=== PATIENT | male | born 1985 | race Caucasian/White ===

== ENCOUNTER 2018-03-07 08:52 | Emergency (ER) | payer OTHER ==
[~2018-03-07] VITALS: Ht 172.7 cm; Wt 77.1 kg
[~2018-03-07 08:52] MED LIST: CLEOCIN HCL150 MG PO; FLEXERIL PO; IBUPROFEN 800800 MG PO; MOBIC7.5 MG PO; NAPROSYN500 MG PO; NOHOMEMEDICATIONS; NORCO 5-325 TA1 EACH PO; NORFLEX100 MG PO; PENICILLIN VK250 MG PO; PENICILLIN VK500 MG PO
[2018-03-07 09:22] LABS: ABSOLUTE BASOPHILS 0.1 thou/uL (0.0-0.2); ABSOLUTE EOSINOPHILS 0.1 thou/uL (0.0-0.7); ABSOLUTE LYMPHOCYTES 1.7 thou/uL (0.8-5.3); ABSOLUTE NEUTROPHILS 11.6 thou/uL (1.6-8.1); BASOPHILS 0.4 %; EOSINOPHILS 0.9 %; HEMATOCRIT 49.6 % (42.0-52.0); HEMOGLOBIN 16.7 gm/dL (14.0-18.0); LYMPHOCYTES 11.6 %; MCHC 33.7 g/dL (28.0-37.0); MCV 89.2 fL (80.0-100.0); MONOCYTES 6.7 %; NUCLEATED RBCS 0 /100WBC; PLATELET COUNT* 308 thou/uL (150-400); POLYS 80.4 %; RBC 5.56 mil/uL (4.50-6.00); RDW-CV 15.4 % (10.5-14.5); WBC 14.4 thou/uL (4.0-11.0)
[2018-03-07 09:31] LABS: APTT 28.8 Seconds (25.0-31.3); PROTIME 10.5 Seconds (9.20-11.50)
[2018-03-07 09:34] LABS: ANION GAP 10 mmol/L (7-16); BUN 9 mg/dL (7-18); CALCIUM 9.2 mg/dL (8.5-10.1); CHLORIDE 101 mmol/L (98-107); CO2 29 mmol/L (21-32); CREATININE 1.1 mg/dL (0.6-1.3); GLUCOSE 83 mg/dL (70-99); SODIUM 140 mmol/L (136-145)
[2018-03-07 09:39] LABS: ACETAMINOPHEN < 2 ug/mL (10-30); ALCOHOL < 10 mg/dL (<10); SALICYLATE < 2.8 mg/dL (2.8-20.0)
[2018-03-07 09:53] LABS: ALBUMIN 4.2 g/dL (3.4-5.0); ALKALINE PHOSPHATASE 93 U/L (46-116); CK-MB MASS 0.9 ng/mL (<0.5-3.6); NT-PRO BRAIN NAT PEPTIDE 21 pg/mL (<300); SGOT 18 U/L (15-37); SGPT 22 U/L (30-65); TOTAL PROTEIN 8.1 g/dL (6.4-8.2); TROPONIN-I LEVEL <0.06 ng/mL (<0.06)
[2018-03-07 10:26] LABS: URINE BLOOD TRACE (Negative); URINE CLARITY CLEAR; URINE COLOR YELLOW; URINE GLUCOSE-RANDOM NEGATIVE (Negative); URINE LEUKOCYTES-REFLEX NEGATIVE (Negative); URINE NITRITE-REFLEX NEGATIVE (Negative); URINE PROTEIN TRACE (Negative); URINE SPECIFIC GRAVITY 1.025 (1.005-1.030)
[2018-03-07 10:31] LABS: ICTOTEST (BILI CONFIRMATORY) Positive (Negative); URINE BILIRUBIN 2+ (Negative); URINE KETONES 3+ (Negative)
[2018-03-07 10:42] LABS: AMP/METHAMP Negative (Negative); BARBITURATES Negative (Negative); BENZODIAZEPINES Negative (Negative); COCAINE Negative (Negative); METHADONE Negative (Negative); OPIATES Negative (Negative); PCP Negative (Negative); THC POSITIVE (Negative)
--- NOTE | 2018-03-07 16:27 | EKG ---
[place] [address] ELECTROCARDIOGRAM REPORT Name: BALJITDIEGO T Room: [facility]#: [id number] Admission: 03/07/18 Attend Phys: Discharge: Date of : 83 Report #: [id number] THIS REPORT FOR: //name// [facility] ED Test Date: 2018-03-07 Test Time: 09:29:08 Pat Name: DIEGO SMILEY Department: Room: Gender: Track Leader: [place] XAVIER : 1985 Requested By: Vel Wu Order Number: [id number] MD: Louis Sierra Measurements Intervals [place] Rate: 66 P: 62 KS: 141 QRS: 52 QRSD: 86 T: 50 QT: 407 QTc: 427 Interpretive Statements Sinus rhythm Probable left atrial enlargement RSR' in V1 or V2, right VCD No previous ECG available for comparison Electronically Signed On 03-07-2018 16:27:18 POT ROOM SUPERVISOR by Louis Sierra [email or web address] <ELECTRONICALLY SIGNED> By: Louis Sierra MD, [facility] 03/07/18 1627 0929 8 Louis Sierra MD, FACC /EPI
--- NOTE | 2018-03-07 17:06 | NUR ---
ASKED TO SEE PT.IN ER BED 1. PT.SHAKING DURING CONVERSATION. HE SAID HE WAS COLD. OFFERED ANOTHER BLANKET BUT HE DECLINED. AT FIRST SAID HE DIDNT WANT TO TALK,HE WANTED TO EAT FIRST. TOLD HIM I WAS GETTING OFF WORK SO IF HE WANTED TO TALK, HE NEEDED TO NOW. HE SAID HE STAYED AT A HOTEL LAST NIGHT BUT DOESN'T REMEMBER WHICH ONE. HE SAID HE MIGHT KNOW SOMEONE TO CALL-A FRIEND OR FAMILY MEMBER BUT WOULD HAVE TO THINK ABOUT IT FOR AWHILE. HE SAID HE HASN'T BEEN TAKING HIS ZYPREXA AND HE FEELS BAD. OFFERED TO SEND HIM TO A HOMELESS ASSISTED. HE DECLINED. GAVE HIM [employer] INFORMATION WITH [employer]. ALSO PUT HOMELESS ASSISTED HOTLINE ON INFORMATION. HE ASKED IF HE COULD GET TO [facility]. INFORMED BRITTANY DOTY.
[2018-03-07 18:03] VITALS: BP 111/66
== END 2018-03-07 18:05 | disposition home or self-care (01) ==
LOC: M.ERS 08:52
PROVIDERS: Family Medicine
DX: R41.82 Altered mental status, unspecified (principal)

== ENCOUNTER 2018-03-11 12:56 | Emergency (ER) | payer OTHER ==
[~2018-03-11] VITALS: Ht 170.2 cm; Wt 81.7 kg
[2018-03-11 13:51] LABS: URINE BILIRUBIN NEGATIVE (Negative); URINE BLOOD NEGATIVE (Negative); URINE CLARITY CLEAR; URINE COLOR YELLOW; URINE GLUCOSE-RANDOM NEGATIVE (Negative); URINE KETONES NEGATIVE (Negative); URINE LEUKOCYTES-REFLEX NEGATIVE (Negative); URINE NITRITE-REFLEX NEGATIVE (Negative); URINE PROTEIN NEGATIVE (Negative); URINE UROBILINOGEN 0.2 E.U./dl (0.2-1.0)
[2018-03-11 13:59] LABS: AMP/METHAMP Negative (Negative); BARBITURATES Negative (Negative); BENZODIAZEPINES Negative (Negative); COCAINE Negative (Negative); METHADONE Negative (Negative); OPIATES Negative (Negative); PCP Negative (Negative); THC POSITIVE (Negative)
[2018-03-11 14:19] LABS: INFLUENZA A ANTIGEN None Detected (None Detect); INFLUENZA B ANTIGEN None Detected (None Detect)
== END 2018-03-11 13:53 | disposition left against medical advice (07) ==
LOC: M.ERS 12:56
PROVIDERS: Nurse Practitioner Family
DX: M54.5 Low back pain (principal)

== ENCOUNTER 2018-05-03 16:22 | Emergency (ER) | payer OTHER ==
[~2018-05-03] VITALS: Ht 175.3 cm; Wt 68.0 kg
[2018-05-04] MEDS ORDERED: AZITHROMYCIN 2250 MG PO (04:40)
== END 2018-05-03 17:03 | disposition left against medical advice (07) ==
LOC: M.ERS 16:22
DX: Z71.1 Person with feared health complaint in whom no diagnosis is made (principal)

== ENCOUNTER 2018-05-04 03:43 | Emergency (ER) | payer OTHER ==
[~2018-05-04] VITALS: Ht 175.3 cm; Wt 59.0 kg
[2018-05-04 04:05] VITALS: BP 129/83
[2018-05-04] MEDS ORDERED: AZITHROMYCIN 2250 MG PO (04:40)
== END 2018-05-04 04:46 | disposition home or self-care (01) ==
LOC: M.ERS 03:43
DX: S90.32XA Contusion of left foot, initial encounter (principal); J40 Bronchitis, not specified as acute or chronic; F20.9 Schizophrenia, unspecified; W20.8XXA Other cause of strike by thrown, projected or falling object, initial encounter; Y92.89 Other specified places as the place of occurrence of the external cause; Y93.89 Activity, other specified; Y99.8 Other external cause status

== ENCOUNTER 2018-08-02 18:52 | Emergency (ER) | payer OTHER ==
[~2018-08-02] VITALS: Ht 175.2 cm; Wt 68.0 kg
[~2018-08-02 18:52] MED LIST changes: +AZITHROMYCIN 2250 MG PO
[2018-08-02] MEDS ORDERED: BACTRIM DS TAB1 EAC1 PO (19:21)
[2018-08-02 19:30] VITALS: BP 108/69
== END 2018-08-02 19:30 | disposition home or self-care (01) ==
LOC: M.ERS 18:52
DX: S61.431A Puncture wound without foreign body of right hand, initial encounter (principal); X58.XXXA Exposure to other specified factors, initial encounter; Y92.89 Other specified places as the place of occurrence of the external cause; Y93.89 Activity, other specified; Y99.8 Other external cause status

== ENCOUNTER 2018-09-03 22:22 | Emergency (ER) | payer OTHER ==
[~2018-09-03] VITALS: Ht 175.3 cm; Wt 59.0 kg
[~2018-09-03 22:22] MED LIST changes: +BACTRIM DS TAB1 EAC1 PO
[2018-09-03] MEDS ORDERED: ZYPREXA5 MG PO (22:35)
[2018-09-03] MEDS ORDERED: MUPIROCIN15 GM TOP (22:55)
[2018-09-03 23:06] VITALS: BP 115/64
== END 2018-09-03 23:06 | disposition home or self-care (01) ==
LOC: M.ERS 22:22
DX: L03.012 Cellulitis of left finger (principal); L03.031 Cellulitis of right toe

== ENCOUNTER 2018-09-07 21:23 | Emergency (ER) | payer OTHER ==
[~2018-09-07] VITALS: Ht 175.3 cm; Wt 60.8 kg
[~2018-09-07 21:23] MED LIST changes: +MUPIROCIN15 GM TOP; +ZYPREXA5 MG PO
[2018-09-07 22:09] LABS: ABSOLUTE BASOPHILS 0.1 thou/uL (0.0-0.2); ABSOLUTE EOSINOPHILS 0.3 thou/uL (0.0-0.7); ABSOLUTE LYMPHOCYTES 2.7 thou/uL (0.8-5.3); ABSOLUTE MONOCYTES 1.2 thou/uL (0.0-1.2); ABSOLUTE NEUTROPHILS 13.2 thou/uL (1.6-8.1); BASOPHILS 0.5 %; EOSINOPHILS 1.9 %; HEMATOCRIT 45.1 % (42.0-52.0); HEMOGLOBIN 15.2 gm/dL (14.0-18.0); LYMPHOCYTES 15.4 %; MCH 29.6 pg (26.0-34.0); MCHC 33.6 g/dL (28.0-37.0); MONOCYTES 6.7 %; MPV 8.1 fl. (7.2-11.1); NUCLEATED RBCS 0 /100WBC; PLATELET COUNT* 287 thou/uL (150-400); POLYS 75.5 %; RBC 5.13 mil/uL (4.50-6.00); RDW-CV 14.5 % (10.5-14.5); WBC 17.4 thou/uL (4.0-11.0)
[2018-09-07 22:28] LABS: ANION GAP 11 mmol/L (7-16); BUN 8 mg/dL (7-18); CALCIUM 8.5 mg/dL (8.5-10.1); CHLORIDE 104 mmol/L (98-107); CO2 24 mmol/L (21-32); GLUCOSE 88 mg/dL (70-99); POTASSIUM 3.4 mmol/L (3.5-5.1); SODIUM 139 mmol/L (136-145)
[2018-09-07 22:52] LABS: ALBUMIN 3.5 g/dL (3.4-5.0); ALKALINE PHOSPHATASE 100 U/L (46-116); CK-MB MASS 1.1 ng/mL (<0.5-3.6); MAGNESIUM 1.8 mg/dL (1.8-2.4); SGOT 23 U/L (15-37); SGPT 25 U/L (30-65); TOTAL BILIRUBIN 0.5 mg/dL (<0.1-1.0); TOTAL PROTEIN 7.1 g/dL (6.4-8.2); TROPONIN-I LEVEL <0.06 ng/mL (<0.06)
[2018-09-07 23:37] VITALS: BP 118/66
--- NOTE | 2018-09-08 16:43 | EKG ---
[place] [address] ELECTROCARDIOGRAM REPORT Name: BALJITDIEGO T Room: [facility]#: [id number] Admission: 09/07/18 Attend Phys: Discharge: 09/08/18 Date of : 83 Report #: [id number] THIS REPORT FOR: //name// [facility] ED Test Date: 2018-09-07 Test Time: 21:58:27 Pat Name: DIEGO SMILEY Department: Room: Gender: M Independent Consultant: [place] : 1985 Requested By: Franchesca Holley Order Number: [id number] MD: Louis Sierra Measurements Intervals [place] Rate: 75 P: 60 FL: 157 QRS: 58 QRSD: 88 T: 44 QT: 367 QTc: 410 Interpretive Statements Sinus rhythm Baseline wander in lead(s) V2 Compared to ECG 03/07/2018 09:29:08 No significant changes Electronically Signed On 09-08-2018 16:43:47 CDT by Louis Sierra [email or web address] <ELECTRONICALLY SIGNED> By: Louis Sierra MD, [facility] 09/08/18 1643 57 Louis Sierra MD, FAC /EPI
== END 2018-09-08 00:56 | disposition left against medical advice (07) ==
LOC: M.ERS 21:23
PROVIDERS: Personal Emergency Response Attendant
DX: S01.111A Laceration without foreign body of right eyelid and periocular area, initial encounter (principal); R11.2 Nausea with vomiting, unspecified; W18.39XA Other fall on same level, initial encounter; Y93.89 Activity, other specified; Y92.89 Other specified places as the place of occurrence of the external cause; Y99.8 Other external cause status

== ENCOUNTER 2018-09-19 12:46 | Emergency (ER) | payer OTHER ==
[~2018-09-19] VITALS: Ht 175.3 cm; Wt 59.0 kg
[2018-09-19 12:51] VITALS: BP 99/47
[2018-09-19] MEDS ORDERED: IBUPROFEN 800800 MG PO (16:09)
== END 2018-09-19 13:04 | disposition left against medical advice (07) ==
LOC: M.ERS 12:46
DX: Z53.21 Procedure and treatment not carried out due to patient leaving prior to being seen by health care provider (principal)

== ENCOUNTER 2018-09-19 14:53 | Emergency (ER) | payer OTHER ==
[~2018-09-19] VITALS: Ht 175.3 cm; Wt 59.0 kg
[2018-09-19] MEDS ORDERED: IBUPROFEN 800800 MG PO (16:09)
[2018-09-19 16:11] VITALS: BP 104/50
== END 2018-09-19 16:13 | disposition home or self-care (01) ==
LOC: M.ERS 14:53
DX: S93.402A Sprain of unspecified ligament of left ankle, initial encounter (principal); F17.210 Nicotine dependence, cigarettes, uncomplicated; X50.1XXA Overexertion from prolonged static or awkward postures, initial encounter; Y93.89 Activity, other specified; Y92.89 Other specified places as the place of occurrence of the external cause; Y99.8 Other external cause status

== ENCOUNTER 2018-09-22 17:16 | Emergency (ER) | payer OTHER ==
[~2018-09-22] VITALS: Ht 175.3 cm; Wt 59.0 kg
[2018-09-22] MEDS ORDERED: ZYPREXA 5 MG TAB5 M1 PO (17:29)
[2018-09-22] MEDS ORDERED: NAPROSYN500 MG PO (18:48)
[2018-09-22 19:17] VITALS: BP 111/66
== END 2018-09-22 19:21 | disposition home or self-care (01) ==
LOC: M.ERS 17:16
DX: S93.492A Sprain of other ligament of left ankle, initial encounter (principal); X50.1XXA Overexertion from prolonged static or awkward postures, initial encounter; Y93.89 Activity, other specified; Y92.89 Other specified places as the place of occurrence of the external cause; Y99.8 Other external cause status

== ENCOUNTER 2018-10-10 19:50 | Emergency (ER) | payer OTHER ==
[~2018-10-10] VITALS: Ht 175.3 cm; Wt 56.7 kg
[~2018-10-10 19:50] MED LIST changes: +ZYPREXA 5 MG TAB5 M1 PO
[2018-10-10 19:57] VITALS: BP 112/65
[2018-10-10] MEDS ORDERED: NOHOMEMEDICATIONS (20:01)
[2018-10-10] MEDS ORDERED: CENTANY30 GM TOP (20:21)
[2018-10-10] MEDS ORDERED: BACTRIM DS TAB1 EACH PO (20:21)
== END 2018-10-10 20:27 | disposition home or self-care (01) ==
LOC: M.ERS 19:50
DX: S00.81XD Abrasion of other part of head, subsequent encounter (principal); X58.XXXD Exposure to other specified factors, subsequent encounter

== ENCOUNTER 2018-10-20 01:38 | Emergency (ER) | payer OTHER ==
[~2018-10-20] VITALS: Ht 175.3 cm; Wt 54.4 kg
[~2018-10-20 01:38] MED LIST changes: +BACTRIM DS TAB1 EACH PO; +CENTANY30 GM TOP
[2018-10-20] MEDS ORDERED: ZYPREXA5 MG PO (01:46)
[2018-10-20] MEDS ORDERED: IBUPROFEN 800800 MG PO (02:30)
[2018-10-20] MEDS ORDERED: NORCO 5-325 TA1 EAC1 PO (02:30)
[2018-10-20 02:49] VITALS: BP 112/69
== END 2018-10-20 02:50 | disposition home or self-care (01) ==
LOC: M.ERS 01:38
DX: M79.672 Pain in left foot (principal)

== ENCOUNTER 2018-10-27 21:32 | Emergency (ER) | payer OTHER ==
[~2018-10-27 21:32] MED LIST changes: +NORCO 5-325 TA1 EAC1 PO
== END 2018-10-27 21:36 | disposition left against medical advice (07) ==
LOC: M.ERS 21:32
DX: Z53.21 Procedure and treatment not carried out due to patient leaving prior to being seen by health care provider (principal)

== ENCOUNTER 2018-10-29 04:06 | Emergency (ER) | payer OTHER | END 2018-10-29 04:31 | disposition left against medical advice (07) | LOC: M.ERS 04:06 | DX: S01.111A Laceration without foreign body of right eyelid and periocular area, initial encounter (principal); X58.XXXA Exposure to other specified factors, initial encounter; Y92.89 Other specified places as the place of occurrence of the external cause; Y93.89 Activity, other specified; Y99.8 Other external cause status ==

== ENCOUNTER → 2018-10-29 | Emergency (ER) | payer OTHER | LOC: M.ERS 00:01 | DX: Z53.21 Procedure and treatment not carried out due to patient leaving prior to being seen by health care provider (principal) ==

== ENCOUNTER 2018-11-09 12:37 | Emergency (ER) | payer OTHER ==
[~2018-11-09] VITALS: Ht 175.3 cm; Wt 59.0 kg
[2018-11-09] MEDS ORDERED: ZYPREXA 5 MG TAB5 M1 PO (13:04)
[2018-11-09] MEDS ORDERED: CENTANY30 GM TOP (13:04)
[2018-11-09 13:25] VITALS: BP 117/78
== END 2018-11-09 13:25 | disposition home or self-care (01) ==
LOC: M.ERS 12:37
DX: F41.9 Anxiety disorder, unspecified (principal); Z48.01 Encounter for change or removal of surgical wound dressing; F17.200 Nicotine dependence, unspecified, uncomplicated

== ENCOUNTER 2018-11-10 21:46 | Emergency (ER) | payer OTHER ==
[~2018-11-10] VITALS: Ht 175.3 cm; Wt 59.0 kg
[2018-11-11 00:27] VITALS: BP 103/73
[2018-11-11] MEDS ORDERED: ZYPREXA5 MG PO (00:31)
== END 2018-11-11 00:28 | disposition home or self-care (01) ==
LOC: M.ERS 21:46
DX: B35.3 Tinea pedis (principal)

== ENCOUNTER 2018-11-14 23:21 | Emergency (ER) | payer OTHER ==
[~2018-11-14] VITALS: Ht 175.3 cm; Wt 59.0 kg
[2018-11-14 23:35] VITALS: BP 116/64
--- NOTE | 2018-11-15 10:53 | NUR ---
WAS CALLED BY ER TO SEE PT RE: CONCERNS. HE ASKED TO SEE CM. PT WOULD NOT TALK TO CM IN THE ER WAITING ROOM. WENT JUST OUTSIDE THE ER ON [address] AND SPOKE WITH PT. HE WAS ASKING FOR PLACE THAT COULD PROVIDE ASSISTANCE FOR HIM. ASKED WHAT IN PARTICULAR HE WAS SEEKING, COULD NOT BE SPECIFIC. HE SHARED THAT HE HAD BEEN TO [facility], TO A PLACE IN [place] AND WAS FAMILIAR WITH THE BOND, OTHER SHELTERS. OFFERED HIM INFO ON THE [facility] AND HE TOOK INFO. HE BECAME MORE ANXIOUS THRU THE CONVERSATION AND WAS BECOMING AGGITATED. CM ENDED CONVERSATION WHEN PT DECLINED BOND. HE IS NOT A CURRENT PT AT THIS TIME, WAS DC'D FROM ER LAST NIGHT. SECURITY NOTIFIED PT ON PROPERTY AND REVIEWED SITUATION
== END 2018-11-14 23:35 | disposition home or self-care (01) ==
LOC: M.ERS 23:21
DX: S01.111D Laceration without foreign body of right eyelid and periocular area, subsequent encounter (principal); W26.8XXD Contact with other sharp object(s), not elsewhere classified, subsequent encounter

== ENCOUNTER 2018-11-18 14:52 | Emergency (ER) | payer OTHER ==
[~2018-11-18] VITALS: Ht 175.3 cm; Wt 56.7 kg
[2018-11-18 15:06] VITALS: BP 111/74
[2018-11-18] MEDS ORDERED: CENTANY30 GM TOP (15:24)
== END 2018-11-18 15:42 | disposition home or self-care (01) ==
LOC: M.ERS 14:52
DX: S00.81XA Abrasion of other part of head, initial encounter (principal); X58.XXXA Exposure to other specified factors, initial encounter; Y93.89 Activity, other specified; Y92.89 Other specified places as the place of occurrence of the external cause; Y99.8 Other external cause status

== ENCOUNTER 2018-11-23 01:02 | Emergency (ER) | payer OTHER ==
[~2018-11-23] VITALS: Ht 175.3 cm; Wt 59.0 kg
[2018-11-23 02:37] VITALS: BP 119/68
== END 2018-11-23 02:38 | disposition home or self-care (01) ==
LOC: M.ERS 01:02
DX: F99 Mental disorder, not otherwise specified (principal); Z59.0 Homelessness

== ENCOUNTER 2019-01-09 19:57 | Emergency (ER) | payer OTHER ==
[~2019-01-09] VITALS: Ht 182.9 cm; Wt 77.1 kg
[2019-01-09 20:14] VITALS: BP 151/109
== END 2019-01-09 21:04 | disposition home or self-care (01) ==
LOC: M.ERS 19:57
DX: S00.211A Abrasion of right eyelid and periocular area, initial encounter (principal); X58.XXXA Exposure to other specified factors, initial encounter; Y93.89 Activity, other specified; Y92.89 Other specified places as the place of occurrence of the external cause; Y99.8 Other external cause status

== ENCOUNTER 2019-01-23 01:08 | Emergency (ER) | payer OTHER ==
[~2019-01-23] VITALS: Ht 175.3 cm; Wt 63.5 kg
[2019-01-23 01:22] VITALS: BP 134/80
== END 2019-01-23 01:22 | disposition left against medical advice (07) ==
LOC: M.ERS 01:08
DX: Z53.21 Procedure and treatment not carried out due to patient leaving prior to being seen by health care provider (principal)

== ENCOUNTER 2019-02-15 22:38 | Emergency (ER) | payer OTHER ==
[~2019-02-15] VITALS: Ht 175.3 cm; Wt 59.0 kg
[2019-02-15 23:33] VITALS: BP 111/69
== END 2019-02-15 23:34 | disposition left against medical advice (07) ==
LOC: M.ERS 22:38
DX: M25.572 Pain in left ankle and joints of left foot (principal)

== ENCOUNTER 2019-02-22 00:17 | Emergency (ER) | payer OTHER ==
[~2019-02-22] VITALS: Ht 175.3 cm; Wt 56.7 kg
[2019-02-22 01:09] VITALS: BP 99/63
== END 2019-02-22 01:10 | disposition home or self-care (01) ==
LOC: M.ERS 00:17
DX: S00.83XA Contusion of other part of head, initial encounter (principal); X83.8XXA Intentional self-harm by other specified means, initial encounter; Y93.89 Activity, other specified; Y92.89 Other specified places as the place of occurrence of the external cause; Y99.8 Other external cause status

== ENCOUNTER 2019-02-23 13:07 | Emergency (ER) | payer OTHER ==
[~2019-02-23] VITALS: Ht 175.3 cm; Wt 59.0 kg
[2019-02-23 15:14] VITALS: BP 137/86
== END 2019-02-23 15:15 | disposition home or self-care (01) ==
LOC: M.ERS 13:07
DX: S00.81XA Abrasion of other part of head, initial encounter (principal); F17.210 Nicotine dependence, cigarettes, uncomplicated; X83.8XXA Intentional self-harm by other specified means, initial encounter; Y93.89 Activity, other specified; Y92.89 Other specified places as the place of occurrence of the external cause; Y99.8 Other external cause status

== ENCOUNTER 2019-02-24 00:14 | Emergency (ER) | payer OTHER | END 2019-02-24 00:18 | disposition left against medical advice (07) | LOC: M.ERS 00:14 | DX: Z53.21 Procedure and treatment not carried out due to patient leaving prior to being seen by health care provider (principal) ==

== ENCOUNTER 2019-05-11 14:05 | Emergency (ER) | payer OTHER ==
[~2019-05-11] VITALS: Ht 175.3 cm; Wt 52.2 kg
[2019-05-11] MEDS ORDERED: IBUPROFEN 800800 M1 PO (15:40)
[2019-05-11] MEDS ORDERED: FLEXERIL PO (15:40)
[2019-05-11 16:15] VITALS: BP 108/71
== END 2019-05-11 16:16 | disposition home or self-care (01) ==
LOC: M.ERS 14:05
DX: S80.02XA Contusion of left knee, initial encounter (principal); F20.9 Schizophrenia, unspecified; V09.09XA Pedestrian injured in nontraffic accident involving other motor vehicles, initial encounter; Y93.89 Activity, other specified; Y92.89 Other specified places as the place of occurrence of the external cause; Y99.8 Other external cause status

== ENCOUNTER 2019-05-13 21:49 | Emergency (ER) | payer OTHER ==
[~2019-05-13] VITALS: Ht 175.3 cm; Wt 52.2 kg
[~2019-05-13 21:49] MED LIST changes: +IBUPROFEN 800800 M1 PO
[2019-05-13] MEDS ORDERED: KEFLEX500 M1 PO (22:49)
[2019-05-13 23:07] VITALS: BP 130/70
== END 2019-05-13 23:09 | disposition home or self-care (01) ==
LOC: M.ERS 21:49
DX: T69.022A Immersion foot, left foot, initial encounter (principal); L03.116 Cellulitis of left lower limb; F20.9 Schizophrenia, unspecified

== ENCOUNTER 2019-05-20 00:53 | Emergency (ER) | payer OTHER ==
[~2019-05-20] VITALS: Ht 175.3 cm; Wt 52.2 kg
[~2019-05-20 00:53] MED LIST changes: +KEFLEX500 M1 PO
[2019-05-20 01:25] LABS: ABSOLUTE BASOPHILS 0.1 thou/uL (0.0-0.2); ABSOLUTE EOSINOPHILS 0.2 thou/uL (0.0-0.7); ABSOLUTE LYMPHOCYTES 2.7 thou/uL (0.8-5.3); ABSOLUTE MONOCYTES 0.8 thou/uL (0.0-1.2); ABSOLUTE NEUTROPHILS 9.2 thou/uL (1.6-8.1); BASOPHILS 0.8 %; EOSINOPHILS 1.7 %; HEMATOCRIT 41.1 % (42.0-52.0); HEMOGLOBIN 13.8 gm/dL (14.0-18.0); LYMPHOCYTES 20.7 %; MCH 30.4 pg (26.0-34.0); MCHC 33.6 g/dL (28.0-37.0); MCV 90.5 fL (80.0-100.0); MONOCYTES 6.3 %; MPV 7.7 fl. (7.2-11.1); NUCLEATED RBCS 0 /100WBC; PLATELET COUNT* 397 thou/uL (150-400); POLYS 70.5 %; RBC 4.54 mil/uL (4.50-6.00); RDW-CV 15.8 % (10.5-14.5); WBC 13.1 thou/uL (4.0-11.0)
[2019-05-20 01:31] LABS: CALCIUM 8.2 mg/dL (8.5-10.1); POTASSIUM 3.4 mmol/L (3.5-5.1)
[2019-05-20 01:34] LABS: ALBUMIN 3.5 g/dL (3.4-5.0); TOTAL BILIRUBIN 0.5 mg/dL (<0.1-1.0); TOTAL PROTEIN 6.9 g/dL (6.4-8.2)
[2019-05-20 01:41] LABS: SALICYLATE < 2.8 mg/dL (2.8-20.0)
[2019-05-20 01:48] LABS: ACETAMINOPHEN < 2 ug/mL (10-30); ALCOHOL < 10 mg/dL (<10)
[2019-05-20 02:58] VITALS: BP 116/80
== END 2019-05-20 02:58 | disposition home or self-care (01) ==
LOC: M.ERS 00:53
PROVIDERS: Family Medicine
DX: S00.81XA Abrasion of other part of head, initial encounter (principal); F32.9 Major depressive disorder, single episode, unspecified; F20.9 Schizophrenia, unspecified; X83.8XXA Intentional self-harm by other specified means, initial encounter; Y93.89 Activity, other specified; Y92.89 Other specified places as the place of occurrence of the external cause; Y99.8 Other external cause status

== ENCOUNTER 2019-06-03 21:56 | Emergency (ER) | payer OTHER ==
[~2019-06-03] VITALS: Ht 175.3 cm; Wt 52.2 kg
[2019-06-03 23:39] VITALS: BP 125/79
== END 2019-06-03 23:39 | disposition home or self-care (01) ==
LOC: M.ERS 21:56
DX: S93.492A Sprain of other ligament of left ankle, initial encounter (principal); M25.562 Pain in left knee; F20.9 Schizophrenia, unspecified; W18.39XA Other fall on same level, initial encounter; Y93.89 Activity, other specified; Y92.89 Other specified places as the place of occurrence of the external cause; Y99.8 Other external cause status

== ENCOUNTER 2019-06-08 23:12 | Emergency (ER) | payer OTHER ==
[~2019-06-08] VITALS: Ht 175.3 cm; Wt 52.2 kg
[2019-06-08 23:51] LABS: URINE BILIRUBIN NEGATIVE (Negative); URINE BLOOD NEGATIVE (Negative); URINE CLARITY CLEAR; URINE COLOR YELLOW; URINE GLUCOSE-RANDOM NEGATIVE (Negative); URINE KETONES NEGATIVE (Negative); URINE LEUKOCYTES NEGATIVE (Negative); URINE NITRITE NEGATIVE (Negative); URINE PROTEIN NEGATIVE (Negative); URINE SPECIFIC GRAVITY 1.025 (1.005-1.030)
[2019-06-08 23:52] LABS: HEMATOCRIT 47.3 % (42.0-52.0); HEMOGLOBIN 16.1 gm/dL (14.0-18.0); MCH 30.5 pg (26.0-34.0); MCHC 34.1 g/dL (28.0-37.0); MCV 89.5 fL (80.0-100.0); MPV 8.4 fl. (7.2-11.1); RBC 5.29 mil/uL (4.50-6.00); RDW-CV 15.3 % (10.5-14.5); WBC 9.6 thou/uL (4.0-11.0)
[2019-06-08 23:59] LABS: AMP/METHAMP Negative (Negative); BARBITURATES Negative (Negative); BENZODIAZEPINES Negative (Negative); COCAINE Negative (Negative); METHADONE Negative (Negative); OPIATES Negative (Negative); PCP Negative (Negative); THC Negative (Negative)
[2019-06-09 00:01] LABS: CALCIUM 8.4 mg/dL (8.5-10.1); CREATININE 0.9 mg/dL (0.6-1.3); POTASSIUM 3.7 mmol/L (3.5-5.1)
[2019-06-09 00:06] LABS: ALBUMIN 3.6 g/dL (3.4-5.0); TOTAL BILIRUBIN 0.4 mg/dL (<0.1-1.0); TOTAL PROTEIN 7.2 g/dL (6.4-8.2)
[2019-06-09 00:20] LABS: SALICYLATE < 2.8 mg/dL (2.8-20.0)
[2019-06-09 00:21] LABS: ACETAMINOPHEN < 2 ug/mL (10-30); ALCOHOL < 10 mg/dL (<10)
[2019-06-09 02:05] VITALS: BP 120/70
== END 2019-06-09 02:09 | disposition home or self-care (01) ==
LOC: M.ERS 23:12
PROVIDERS: Personal Emergency Response Attendant
DX: F99 Mental disorder, not otherwise specified (principal); F20.9 Schizophrenia, unspecified

== ENCOUNTER 2019-06-15 21:15 | Emergency (ER) | payer OTHER ==
[~2019-06-15] VITALS: Ht 182.9 cm; Wt 77.1 kg
[2019-06-15 21:59] VITALS: BP 122/69
== END 2019-06-15 21:59 | disposition home or self-care (01) ==
LOC: M.ERS 21:15
DX: M25.462 Effusion, left knee (principal); M25.572 Pain in left ankle and joints of left foot; M25.562 Pain in left knee

== ENCOUNTER 2019-08-01 03:54 | Emergency (ER) | payer OTHER ==
[~2019-08-01] VITALS: Ht 167.6 cm; Wt 68.0 kg
[2019-08-01 05:37] VITALS: BP 000/000
== END 2019-08-01 05:41 | disposition left against medical advice (07) ==
LOC: M.ERS 03:54
DX: F20.9 Schizophrenia, unspecified (principal); F29 Unspecified psychosis not due to a substance or known physiological condition

== ENCOUNTER 2020-01-01 20:55 | Emergency (ER) | payer OTHER | END 2020-01-01 21:27 | disposition left against medical advice (07) | LOC: M.ERS 20:55 | DX: Z53.21 Procedure and treatment not carried out due to patient leaving prior to being seen by health care provider (principal) ==

== ENCOUNTER 2020-02-22 01:56 | Emergency (ER) | payer OTHER ==
[~2020-02-22] VITALS: Ht 162.6 cm; Wt 70.3 kg
[2020-02-22 06:59] VITALS: BP 134/75
== END 2020-02-22 07:01 | disposition home or self-care (01) ==
LOC: M.ERS 01:56
DX: M25.572 Pain in left ankle and joints of left foot (principal); F20.9 Schizophrenia, unspecified; Z79.899 Other long term (current) drug therapy; X50.1XXA Overexertion from prolonged static or awkward postures, initial encounter; Y93.89 Activity, other specified; Y92.89 Other specified places as the place of occurrence of the external cause; Y99.8 Other external cause status

== ENCOUNTER 2020-02-27 22:25 | Emergency (ER) | payer OTHER ==
[~2020-02-27] VITALS: Ht 172.7 cm; Wt 68.0 kg
[2020-02-27 23:18] VITALS: BP 123/66
== END 2020-02-27 23:18 | disposition home or self-care (01) ==
LOC: M.ERS 22:25
DX: S93.492A Sprain of other ligament of left ankle, initial encounter (principal); X58.XXXA Exposure to other specified factors, initial encounter; Y93.89 Activity, other specified; Y92.89 Other specified places as the place of occurrence of the external cause; Y99.8 Other external cause status

== ENCOUNTER 2020-03-19 18:51 | Emergency (ER) | payer OTHER ==
[~2020-03-19] VITALS: Ht 175.3 cm; Wt 59.0 kg
[2020-03-19 18:58] VITALS: BP 136/91
== END 2020-03-19 19:18 | disposition left against medical advice (07) ==
LOC: M.ERS 18:51
DX: M25.571 Pain in right ankle and joints of right foot (principal); Z79.899 Other long term (current) drug therapy; W18.39XA Other fall on same level, initial encounter; Y93.89 Activity, other specified; Y92.89 Other specified places as the place of occurrence of the external cause; Y99.8 Other external cause status

== ENCOUNTER 2020-07-03 00:28 | Emergency (ER) | payer OTHER ==
[~2020-07-03] VITALS: Ht 175.3 cm; Wt 59.0 kg
[2020-07-03 03:00] VITALS: BP 132/68
== END 2020-07-03 03:00 | disposition home or self-care (01) ==
LOC: M.ERS 00:28
DX: S83.92XA Sprain of unspecified site of left knee, initial encounter (principal); X50.1XXA Overexertion from prolonged static or awkward postures, initial encounter; Y93.89 Activity, other specified; Y92.89 Other specified places as the place of occurrence of the external cause; Y99.9 Unspecified external cause status

== ENCOUNTER 2020-11-21 14:32 | Emergency (ER) | payer OTHER ==
[~2020-11-21] VITALS: Ht 175.3 cm; Wt 59.0 kg
[2020-11-21 14:34] VITALS: BP 107/69
== END 2020-11-21 18:43 | disposition home or self-care (01) ==
LOC: M.ERS 14:32
DX: S93.402A Sprain of unspecified ligament of left ankle, initial encounter (principal); F20.9 Schizophrenia, unspecified; Z79.899 Other long term (current) drug therapy; W01.0XXA Fall on same level from slipping, tripping and stumbling without subsequent striking against object, initial encounter; Y93.89 Activity, other specified; Y92.89 Other specified places as the place of occurrence of the external cause; Y99.8 Other external cause status

== ENCOUNTER 2021-02-28 21:50 | Emergency (ER) | payer OTHER ==
[~2021-02-28] VITALS: Ht 175.3 cm; Wt 59.0 kg
[2021-03-01 01:00] VITALS: BP 130/81
== END 2021-03-01 01:00 | disposition left against medical advice (07) ==
LOC: M.ERS 21:50
DX: M25.572 Pain in left ankle and joints of left foot (principal); Z79.899 Other long term (current) drug therapy

== ENCOUNTER 2021-03-27 17:03 | Emergency (ER) | payer OTHER ==
[~2021-03-27] VITALS: Ht 175.3 cm; Wt 59.4 kg
[2021-03-27 17:20] VITALS: BP 117/80
[2021-03-27] MEDS ORDERED: CEPHALEXIN500 MG PO (20:57)
== END 2021-03-27 21:52 | disposition home or self-care (01) ==
LOC: M.ERS 17:03
DX: S92.354A Nondisplaced fracture of fifth metatarsal bone, right foot, initial encounter for closed fracture (principal); S89.391A Other physeal fracture of lower end of right fibula, initial encounter for closed fracture; F20.9 Schizophrenia, unspecified; Z79.899 Other long term (current) drug therapy; W50.0XXA Accidental hit or strike by another person, initial encounter; Y93.01 Activity, walking, marching and hiking; Y92.89 Other specified places as the place of occurrence of the external cause; Y99.8 Other external cause status

== ENCOUNTER 2021-04-11 05:44 | Emergency (ER) | payer OTHER ==
[~2021-04-11] VITALS: Ht 172.7 cm; Wt 65.3 kg
[~2021-04-11 05:44] MED LIST changes: +CEPHALEXIN500 MG PO
[2021-04-11 09:21] VITALS: BP 117/73
== END 2021-04-11 09:23 | disposition home or self-care (01) ==
LOC: M.ERS 05:44
DX: R11.2 Nausea with vomiting, unspecified (principal); R19.7 Diarrhea, unspecified; F20.9 Schizophrenia, unspecified; Z79.899 Other long term (current) drug therapy

== ENCOUNTER 2021-04-15 21:00 | Emergency (ER) | payer OTHER ==
[~2021-04-15] VITALS: Ht 175.3 cm; Wt 59.0 kg
[2021-04-15 22:18] VITALS: BP 122/73
== END 2021-04-15 22:18 | disposition home or self-care (01) ==
LOC: M.ERS 21:00
DX: S82.831A Other fracture of upper and lower end of right fibula, initial encounter for closed fracture (principal); F20.9 Schizophrenia, unspecified; Z79.899 Other long term (current) drug therapy; W19.XXXA Unspecified fall, initial encounter; Y93.89 Activity, other specified; Y92.481 Parking lot as the place of occurrence of the external cause; Y99.8 Other external cause status

== ENCOUNTER 2021-04-17 22:28 | Emergency (ER) | payer OTHER ==
[~2021-04-17] VITALS: Ht 167.6 cm; Wt 68.0 kg
== END 2021-04-17 23:31 | disposition left against medical advice (07) ==
LOC: M.ERS 22:28
DX: M25.571 Pain in right ankle and joints of right foot (principal); F20.9 Schizophrenia, unspecified; Z53.21 Procedure and treatment not carried out due to patient leaving prior to being seen by health care provider

== ENCOUNTER 2021-04-18 22:21 | Emergency (ER) | payer OTHER ==
[~2021-04-18] VITALS: Ht 167.6 cm; Wt 74.8 kg
[2021-04-19 00:09] VITALS: BP 122/83
== END 2021-04-19 00:09 | disposition home or self-care (01) ==
LOC: M.ERS 22:21
DX: R05.9 Cough, unspecified (principal); Z20.822 Contact with and (suspected) exposure to COVID-19; F20.9 Schizophrenia, unspecified; Z98.890 Other specified postprocedural states

== ENCOUNTER 2021-04-20 20:33 | Emergency (ER) | payer OTHER ==
[~2021-04-20] VITALS: Ht 177.8 cm; Wt 59.0 kg
[2021-04-20 21:35] VITALS: BP 102/66
== END 2021-04-20 21:35 | disposition left against medical advice (07) ==
LOC: M.ERS 20:33
DX: F41.9 Anxiety disorder, unspecified (principal); F20.9 Schizophrenia, unspecified